=== PATIENT | female | born 1990 | race Caucasian/White ===

== ENCOUNTER 2018-08-16 12:30 | Emergency (ER) | payer OTHER, BC ==
[~2018-08-16] VITALS: Ht 168 cm; Wt 60.5 kg
[2018-08-16 12:44] VITALS: BP 115/57; TEMP 99.4
[2018-08-16 15:09] VITALS: PULSE 78
== END 2018-08-16 14:24 | disposition home or self-care (01) ==
LOC: COL.ER 12:30
DX: R07.89 Other chest pain (principal)